=== PATIENT | female | born 1955 ===

== ENCOUNTER 2020-11-15 14:57 | Inpatient (IN) ==
[2020-11-15] MEDS ORDERED: ASPIRIN 325 MG TABLET PO STA (15:38)
[2020-11-15] MEDS ORDERED: ONDANSETRON 4 MG/2 ML VIAL IV STA (15:38)
[2020-11-15] MEDS ORDERED: MORPHINE 4 MG/1 ML VIAL IV STA (15:38)
[2020-11-15] MEDS ORDERED: METOPROLOL TARTRATE 5 MG/5 ML VIAL IV STA (15:42)
[2020-11-15 15:46] LABS: Basophils % 0.3 % (0.0-0.8); Eosinophils # 0.1 10*3/uL (0.0-0.87); Eosinophils % 0.8 % (0.00-10.9); Hematocrit 38.4 VOL% (35.7-47.0); Hemoglobin 12.8 GM/DL (12.0-16.0); Immature Granulocytes % 0.2 %; Immature Granulocytes Absolute 0.01 #; Lymphocytes # 2.2 10*3/uL (1.4-4.0); Lymphocytes % 36.5 % (21.3-54.2); Mean Corpuscular HGB Conc 33.3 GM/DL (32-36); Mean Corpuscular Volume 90.1 FL (87-102); Mean Platelet Volume 11.1 FL (9.6-12.0); Monocytes % 8.9 % (1.7-12.7); Neutrophils % 53.3 % (38.7-73.9); Platelet Count 196 T/CUMM (130-400); Red Blood Count 4.26 MC/CUMM (3.8-5.5); Red Cell Distribution Width 13.3 % (9.3-17.3); White Blood Count 6.1 T/CUMM (4-12)
[2020-11-15 15:55] LABS: INR 1.2; PT Patient Result 12.4 SECS (9.8-11.9)
[2020-11-15 15:57] LABS: Albumin 3.6 G/DL (3.4-5.0); Bilirubin,Total 0.7 MG/DL (0.2-1.0); Calcium 9.6 MG/DL (8.5-10.1); Potassium 3.4 MMOL/L (3.5-5.1); Total Protein 7.7 G/DL (6.4-8.2)
[2020-11-15] MEDS ORDERED: HEPARIN DRIP 25,000 UNITS/500 ML PREMIX IV SCH (16:00)
[2020-11-15] MEDS ORDERED: HEPARIN/NACL 0.9% 2 UNITS/ML 2,000 UNIT/1,000 ML BAG IV ONE (16:15)
[2020-11-15] MEDS ORDERED: LIDOCAINE 1% 20 ML VIAL ONE (16:15)
[2020-11-15] MEDS ORDERED: NITROGLYCERIN 2% OINT 1 INCH/GM PACK TOP STA (16:23)
[2020-11-15] MEDS ORDERED: NITROGLYCERIN DRIP 50 MG/250 ML BOTTLE IV ONE (16:27)
[2020-11-15] MEDS ORDERED: VERAPAMIL 5 MG/2 ML VIAL ONE (16:27)
[2020-11-15] MEDS ORDERED: MAGNESIUM SULF RIDER 2 GM in PREMIX 1 EACH IV PRN (16:32)
[2020-11-15] MEDS ORDERED: BISACODYL 5 MG TABLET PO PRN (16:32)
[2020-11-15] MEDS ORDERED: MAGNESIUM SULF RIDER 4 GM in PREMIX 1 EACH IV PRN (16:32)
[2020-11-15] MEDS ORDERED: ALUMINUM/MAGNES/SIMETH MAX STR 30 ML UDCUP PO PRN (16:32)
[2020-11-15] MEDS ORDERED: hydrALAZINE 20 MG/1 ML VIAL IV PRN (16:32)
[2020-11-15] MEDS ORDERED: ONDANSETRON 4 MG/2 ML VIAL IV PRN (16:32)
[2020-11-15] MEDS ORDERED: MORPHINE 4 MG/1 ML VIAL IV PRN (16:32)
[2020-11-15] MEDS ORDERED: ZALEPLON 5 MG CAPSULE PO PRN (16:32)
[2020-11-15] MEDS ORDERED: diphenhydrAMINE CAP 25 MG CAPSULE PO ONE (16:36)
[2020-11-15] MEDS ORDERED: DIAZEPAM 5 MG TABLET PO ONE (16:36)
[2020-11-15] MEDS ORDERED: HYDROmorphone 2 MG/1 ML VIAL ONE (16:46)
[2020-11-15] MEDS ORDERED: MIDAZOLAM 2 MG/2 ML VIAL ONE (16:46)
[2020-11-15] MEDS: SODIUM CHLORIDE 0.45% 1,000 ML IV SCH (17:51)
[2020-11-15 18:22] LABS: CKMB % 10.9 %
[2020-11-15 18:35] LABS: Troponin I 27.2 NG/ML (0.00-0.045)
[2020-11-15] MEDS ORDERED: METOPROLOL TARTRATE 25 MG TABLET PO SCH (21:00)
[2020-11-15] MEDS ORDERED: ROSUVASTATIN 20 MG TABLET PO SCH (21:00)
[2020-11-15] MEDS: METOPROLOL TARTRATE 25 MG TABLET PO SCH (21:09)
[2020-11-15 21:22] LABS: CKMB % 10.1 %
[2020-11-15 21:24] LABS: Troponin I 29.4 NG/ML (0.00-0.045)
[2020-11-15] MEDS ORDERED: HEPARIN 5,000 UNIT/1 ML VIAL IV ONE (21:26)
[2020-11-15 22:59] LABS: CKMB % 9.2 %
[2020-11-15 23:04] LABS: Troponin I 26.7 NG/ML (0.00-0.045)
[2020-11-15] MEDS: NITROGLYCERIN SL 0.4 MG TABLET SL PRN ×2 (23:12→23:18)
[2020-11-16] MEDS: SODIUM CHLORIDE 0.45% 1,000 ML IV SCH (02:15)
[2020-11-16 03:18] LABS: Basophils % 0.4 % (0.0-0.8); Eosinophils # 0.1 10*3/uL (0.0-0.87); Eosinophils % 1.3 % (0.00-10.9); Hematocrit 34.1 VOL% (35.7-47.0); Hemoglobin 11.5 GM/DL (12.0-16.0); Immature Granulocytes % 0.4 %; Immature Granulocytes Absolute 0.02 #; Lymphocytes % 35.4 % (21.3-54.2); Mean Corpuscular HGB Conc 33.7 GM/DL (32-36); Mean Corpuscular Volume 89.7 FL (87-102); Mean Platelet Volume 10.2 FL (9.6-12.0); Monocytes % 8.2 % (1.7-12.7); Neutrophils % 54.3 % (38.7-73.9); Platelet Count 161 T/CUMM (130-400); Red Cell Distribution Width 13.2 % (9.3-17.3); White Blood Count 5.6 T/CUMM (4-12)
[2020-11-16 03:31] LABS: Calcium 8.6 MG/DL (8.5-10.1); Osmolality,Calculated 275.8 MOS/KG (273-304); Potassium 3.3 MMOL/L (3.5-5.1)
[2020-11-16 03:51] LABS: Risk Ratio 3.18; VLDL CHOLESTEROL 13.6 MG/DL
[2020-11-16] MEDS: POTASSIUM CHLORIDE 20 MEQ TABLET PO PRN ×2 (05:35→08:19)
[2020-11-16] MEDS ORDERED: GLUCAGON 1 MG VIAL IM PRN (06:22)
[2020-11-16] MEDS ORDERED: DEXTROSE 50% 25 GM/50 ML VIAL IV PRN ×5 (06:22→15:50)
[2020-11-16] MEDS ORDERED: CEFUROXIME INJ 1,500 MG in SODIUM CHLORIDE 0.9% 100 ML IV ONE ×2 (06:22→10:00)
[2020-11-16] MEDS: CHLORHEXIDINE 4% SOLN 118 ML BOTTLE TOP SCH ×4 (06:30→16:23)
[2020-11-16] MEDS ORDERED: SODIUM CHLORIDE 0.9% 1,000 ML IV SCH (06:30)
[2020-11-16] MEDS ORDERED: POTASSIUM CHLORIDE RIDER 20 MEQ in PREMIX 1 EACH IV PRN ×2 (06:45→15:26)
[2020-11-16] MEDS ORDERED: POTASSIUM CHLORIDE RIDER 10 MEQ in PREMIX 1 EACH IV PRN ×2 (06:45→15:26)
[2020-11-16 06:50] LABS: ABG Oxygen Saturation 98.2 % (95-100); ABG PCO2 42.4 MM HG (35-48); ABG PH 7.437 (7.35-7.45); ABG PO2 99.3 MM HG (80-95); ABG TCO2 25.4 MMOL/L (23-27)
[2020-11-16] MEDS: METOPROLOL TARTRATE 25 MG TABLET PO SCH (08:19)
[2020-11-16] MEDS ORDERED: MAGNESIUM SULF INJ 3 GM in SODIUM CHLORIDE 0.9% 100 ML IV ONE (08:30)
[2020-11-16] MEDS ORDERED: CHLORHEXIDINE 0.12% ORAL RINSE 60 ML BOTTLE SWISH/SPIT SCH ×3 (09:00→21:00)
[2020-11-16] MEDS ORDERED: PANTOPRAZOLE 40 MG TABLET PO SCH (09:00)
[2020-11-16] MEDS ORDERED: LOSARTAN 25 MG TABLET PO SCH (09:00)
[2020-11-16] MEDS ORDERED: ASPIRIN EC 81 MG TABLET PO SCH (09:00)
[2020-11-16] MEDS ORDERED: DIAZEPAM 5 MG TABLET PO ONE (09:42)
[2020-11-16] MEDS ORDERED: PAPAVERINE 60 MG/2 ML VIAL ONE (10:33)
[2020-11-16] MEDS ORDERED: VANCOMYCIN 1,000 MG VIAL ONE (10:34)
[2020-11-16] MEDS ORDERED: VANCOMYCIN 500 MG VIAL ONE (10:34)
[2020-11-16] MEDS ORDERED: SODIUM CHLORIDE 0.9% 1,000 ML IV ONE (10:42)
[2020-11-16] MEDS ORDERED: LIDOCAINE 2% 5 ML VIAL ONE ×2 (10:42→14:47)
[2020-11-16] MEDS ORDERED: SODIUM CHLORIDE 0.9% 250 ML IV ONE (10:42)
[2020-11-16] MEDS ORDERED: AMINOCAPROIC ACID 5,000 MG/20 ML VIAL ONE (10:42)
[2020-11-16] MEDS ORDERED: VECURONIUM 10 MG VIAL IV ONE (10:42)
[2020-11-16] MEDS ORDERED: HEPARIN/NACL 0.9% 2 UNITS/ML 1,000 UNIT/500 ML BAG IV ONE (10:42)
[2020-11-16] MEDS ORDERED: LACTATED RINGERS 1,000 ML IV ONE (10:42)
[2020-11-16] MEDS ORDERED: SODIUM CHLORIDE 0.9% 100 ML IV ONE (10:42)
[2020-11-16] MEDS ORDERED: MIDAZOLAM 10 MG/2 ML VIAL ONE ×4 (10:43)
[2020-11-16] MEDS ORDERED: SUFentanil 250 MCG/5 ML AMP ONE ×2 (10:43→10:49)
[2020-11-16] MEDS ORDERED: MINERAL OIL/PETROLATUM OPH OINT 3.5 GM TUBE ONE (10:43)
[2020-11-16 12:28] LABS: ABG Base Excess 1.2 MMOL/L (-2.5-2.5); ABG HCO3 25.5 MMOL/L (20-26); ABG PCO2 36.2 MM HG (35-48); ABG PH 7.446 (7.35-7.45); ABG TCO2 22.5 MMOL/L (23-27); Glucose Heart Surgery 117 MG/DL (74-106); Hematocrit Heart Surgery 32.3 PERCENT (37-47); Hemoglobin Heart Surgery 10.5 G/DL (12.0-16.0); Ionized Calcium Arterial 1.17 MMOL/L (1.21-1.46); PCO2 Patient Temp Arterial 36.2 MMHG; PH Patient Temp Arterial 7.446; Patient Temperature 37 CELCIUS; Potassium Heart/CVR 3.6 MMOL/L (3.5-5.1); Sodium Heart/CVR 139 MMOL/L (135-145)
[2020-11-16 12:40] LABS: Bilirubin,Urine Negative (Negative); Blood, Urine Small mg/dL (Negative); Glucose,Urine (UA) Negative (Negative); Ketones,Urine Negative (Negative); Mucus,Urine Few /LPF (Occasional); Nitrite,Urine Negative (Negative); Protein,Urine Negative; Urine Appearance CLEAR (Clear); Urine Color Yellow (Yellow); Urine Urobilinogen < 2.0 EU/DL (0.2-1.0); WBC,Urine <1 /HPF (0-6)
[2020-11-16 13:44] LABS: Hematocrit Heart Surgery 22.5 PERCENT (37-47); Hemoglobin Heart Surgery 7.2 G/DL (12.0-16.0); PCO2 Patient Temp Venous 35.6 MM HG; PH Patient Temp Venous 7.469; Potassium Heart/CVR 4.5 MMOL/L (3.5-5.1); VBG Base Excess 2.3 MEQ/L (0-4); VBG HCO3 26.3 MEQ/L (24-28); VBG Oxygen Saturation 76.3 %; VBG PCO2 39.2 MMHG (41-51); VBG PH 7.44; VBG PO2 41.3 MMHG (17-40); VBG Total CO2 25.1 MMOL/L
[2020-11-16] MEDS ORDERED: PHENYLEPHRINE 10 MG/1 ML VIAL IV ONE (14:03)
[2020-11-16] MEDS ORDERED: CALCIUM CHLORIDE 1,000 MG/10 ML VIAL IV ONE (14:07)
[2020-11-16] MEDS ORDERED: SEVOFLURANE 1 UNIT/15 MINUTE INH ONE ×5 (14:08→15:27)
[2020-11-16] MEDS ORDERED: PHENYLEPHRINE DRIP 40 MG/250 ML PREMIX IV ONE (14:09)
[2020-11-16] MEDS ORDERED: ESMOLOL 100 MG/10 ML VIAL IV ONE (14:18)
[2020-11-16 14:19] LABS: Hemoglobin Heart Surgery 7.8 G/DL (12.0-16.0); PCO2 Patient Temp Venous 33.8 MM HG; PH Patient Temp Venous 7.5; PO2 Patient Temp Venous 36.7 MM HG; Potassium Heart/CVR 4.1 MMOL/L (3.5-5.1); VBG Base Excess 2.5 MEQ/L (0-4); VBG Oxygen Saturation 72.3 %; VBG PCO2 35.3 MMHG (41-51); VBG PH 7.485; VBG PO2 39.4 MMHG (17-40); VBG Total CO2 27.1 MMOL/L
[2020-11-16 14:46] LABS: ABG Base Excess 0.3 MMOL/L (-2.5-2.5); ABG HCO3 24.7 MMOL/L (20-26); ABG Oxygen Saturation 99.5 % (95-100); ABG PH 7.403 (7.35-7.45); ABG TCO2 23.2 MMOL/L (23-27); Glucose Heart Surgery 224 MG/DL (74-106); Hematocrit Heart Surgery 25.5 PERCENT (37-47); Hemoglobin Heart Surgery 8.2 G/DL (12.0-16.0); Ionized Calcium Arterial 1.24 MMOL/L (1.21-1.46); PH Patient Temp Arterial 7.403; Patient Temperature 37 CELCIUS; Potassium Heart/CVR 3.8 MMOL/L (3.5-5.1); Sodium Heart/CVR 131 MMOL/L (135-145)
[2020-11-16] MEDS ORDERED: DEXTROSE 5% KCL 20 MEQ 20 MEQ/1,000 ML BAG IV ONE (14:47)
[2020-11-16] MEDS ORDERED: MANNITOL 100 GM/500 ML BAG IV ONE (14:47)
[2020-11-16] MEDS ORDERED: PROTAMINE SULFATE 250 MG/25 ML VIAL IV ONE (14:47)
[2020-11-16] MEDS ORDERED: MAGNESIUM SULFATE 5 GM/10 ML VIAL IV ONE (14:47)
[2020-11-16] MEDS ORDERED: METOPROLOL TARTRATE 5 MG/5 ML VIAL IV ONE (14:47)
[2020-11-16] MEDS ORDERED: HEPARIN 10,000 UNIT/10 ML VIAL ONE (14:47)
[2020-11-16] MEDS ORDERED: ALBUMIN 25% 25 GM/100 ML VIAL IV ONE (14:47)
[2020-11-16] MEDS ORDERED: methylPREDNISolone SOD SUC 1,000 MG/8 ML VIAL ONE (14:47)
[2020-11-16] MEDS ORDERED: FUROSEMIDE 20 MG/2 ML VIAL ONE (14:48)
[2020-11-16] MEDS ORDERED: MAGNESIUM SULF RIDER 2 GM in PREMIX 1 EACH IV PRN ×2 (15:26→15:50)
[2020-11-16] MEDS ORDERED: PHENYLEPHRINE DRIP 40 MG/250 ML PREMIX IV PRN ×2 (15:26→15:50)
[2020-11-16] MEDS ORDERED: MAGNESIUM SULF RIDER 4 GM in PREMIX 1 EACH IV PRN ×2 (15:26→15:50)
[2020-11-16] MEDS ORDERED: CHLORHEXIDINE 4% SOLN 118 ML BOTTLE TOP PRN ×2 (15:26→15:50)
[2020-11-16] MEDS ORDERED: MORPHINE 4 MG/1 ML VIAL IV PRN (15:26)
[2020-11-16] MEDS ORDERED: MORPHINE 10 MG/1 ML VIAL IV PRN ×2 (15:26→15:50)
[2020-11-16] MEDS ORDERED: INSULIN REGULAR 100 UNIT/ML IV ONE ×2 (15:26→15:50)
[2020-11-16] MEDS ORDERED: CALCIUM CHLORIDE 1,000 MG/10 ML SYRINGE IV PRN ×2 (15:26→15:50)
[2020-11-16] MEDS ORDERED: NITROPRUSSIDE 100 MG in DEXTROSE 5% 250 ML IV PRN ×2 (15:26→15:50)
[2020-11-16] MEDS ORDERED: MIDAZOLAM 10 MG/2 ML VIAL IV PRN ×2 (15:26→15:50)
[2020-11-16] MEDS ORDERED: ACETAMINOPHEN 650 MG SUPP RECTAL PRN ×2 (15:26→15:50)
[2020-11-16] MEDS ORDERED: ALBUMIN 5% 12.5 GM/250 ML VIAL IV PRN ×2 (15:26→15:50)
[2020-11-16] MEDS ORDERED: VECURONIUM 10 MG VIAL IV PRN ×4 (15:26→15:50)
[2020-11-16] MEDS ORDERED: INSULIN REGULAR 100 UNIT/ML IV PRN ×2 (15:26→15:50)
[2020-11-16] MEDS ORDERED: ONDANSETRON 4 MG/2 ML VIAL IV PRN ×2 (15:26→15:50)
[2020-11-16] MEDS ORDERED: LACTATED RINGERS 1,000 ML IV PRN (15:26)
[2020-11-16] MEDS ORDERED: MIDAZOLAM 2 MG/2 ML VIAL IV PRN ×2 (15:26→15:50)
[2020-11-16] MEDS ORDERED: SODIUM CHLORIDE 0.45% 1,000 ML IV SCH ×5 (15:30→16:30)
[2020-11-16] MEDS ORDERED: INSULIN REGULAR DRIP 100 ML IV SCH ×2 (15:30→15:50)
[2020-11-16] MEDS ORDERED: HEPARIN/NACL 0.9% 2 UNITS/ML 1,000 UNIT/500 ML BAG IV SCH (15:30)
[2020-11-16] MEDS: LACTATED RINGERS 1,000 ML IV PRN ×4 (15:45→18:27)
[2020-11-16] MEDS ORDERED: LACTATED RINGERS 250 ML IV PRN (15:50)
[2020-11-16] MEDS ORDERED: PROTAMINE SULFATE 50 MG/5 ML VIAL IV ONE ×2 (15:57→16:07)
[2020-11-16] MEDS: POTASSIUM CHLORIDE RIDER 20 MEQ in PREMIX 1 EACH IV PRN ×4 (16:00→20:38)
[2020-11-16 16:02] LABS: ABG Base Excess 1.9 MMOL/L (-2.5-2.5); ABG HCO3 26.1 MMOL/L (20-26); ABG Oxygen Saturation 98.8 % (95-100); ABG PCO2 43.4 MM HG (35-48); ABG PH 7.402 (7.35-7.45); ABG TCO2 24.3 MMOL/L (23-27); Glucose Heart Surgery 207 MG/DL (74-106); Hemoglobin Heart Surgery 10.7 G/DL (12.0-16.0); Potassium Heart/CVR 3.4 MMOL/L (3.5-5.1)
[2020-11-16 16:11] LABS: Basophils % 0.2 % (0.0-0.8); Eosinophils % 0.8 % (0.00-10.9); Hematocrit 31.2 VOL% (35.7-47.0); Hemoglobin 10.4 GM/DL (12.0-16.0); Immature Granulocytes % 0.6 %; Immature Granulocytes Absolute 0.03 #; Lymphocytes # 0.9 10*3/uL (1.4-4.0); Lymphocytes % 18.1 % (21.3-54.2); Mean Corpuscular HGB Conc 33.3 GM/DL (32-36); Mean Corpuscular Volume 90.7 FL (87-102); Mean Platelet Volume 10.6 FL (9.6-12.0); Neutrophils % 74.3 % (38.7-73.9); Platelet Count 147 T/CUMM (130-400); Red Blood Count 3.44 MC/CUMM (3.8-5.5); Red Cell Distribution Width 13.2 % (9.3-17.3); White Blood Count 5.2 T/CUMM (4-12)
[2020-11-16] MEDS ORDERED: POTASSIUM CHLORIDE RIDER 100 ML IV ONE ×2 (16:12)
[2020-11-16] MEDS ORDERED: NITROPRUSSIDE 50 MG/2 ML VIAL ONE (16:13)
[2020-11-16 16:23] LABS: INR 1.1; PT Patient Result 12.4 SECS (9.8-11.9); Partial Thromboplastin Time 25.6 SECS (23.9-33.8)
[2020-11-16 16:28] LABS: CKMB % 4.9 %
[2020-11-16 16:32] LABS: Troponin I 24.6 NG/ML (0.00-0.045)
[2020-11-16 16:35] LABS: Albumin 3.1 G/DL (3.4-5.0); Calcium 8.7 MG/DL (8.5-10.1); Osmolality,Calculated 281.5 MOS/KG (273-304); Potassium 3.3 MMOL/L (3.5-5.1); Total Protein 6.1 G/DL (6.4-8.2)
[2020-11-16 17:39] LABS: ABG Base Excess 2.2 MMOL/L (-2.5-2.5); ABG HCO3 26.4 MMOL/L (20-26); ABG Oxygen Saturation 98.4 % (95-100); ABG PCO2 44.3 MM HG (35-48); ABG PH 7.399 (7.35-7.45); ABG TCO2 24.9 MMOL/L (23-27); Glucose Heart Surgery 154 MG/DL (74-106); Hematocrit Heart Surgery 30.9 PERCENT (37-47); Potassium Heart/CVR 3.5 MMOL/L (3.5-5.1)
[2020-11-16 19:35] LABS: ABG Base Excess 3.1 MMOL/L (-2.5-2.5); ABG HCO3 27.2 MMOL/L (20-26); ABG Oxygen Saturation 95.8 % (95-100); ABG PCO2 43.6 MM HG (35-48); ABG PH 7.416 (7.35-7.45); ABG PO2 81.1 MM HG (80-95); ABG TCO2 25.5 MMOL/L (23-27); Glucose Heart Surgery 144 MG/DL (74-106); Hematocrit Heart Surgery 30.6 PERCENT (37-47); Hemoglobin Heart Surgery 9.9 G/DL (12.0-16.0); Potassium Heart/CVR 3.9 MMOL/L (3.5-5.1)
[2020-11-16 20:31] LABS: ABG Base Excess 2.5 MMOL/L (-2.5-2.5); ABG HCO3 26.6 MMOL/L (20-26); ABG Oxygen Saturation 94.9 % (95-100); ABG PCO2 45.8 MM HG (35-48); ABG PH 7.392 (7.35-7.45); ABG PO2 77.9 MM HG (80-95); ABG TCO2 25.7 MMOL/L (23-27); Glucose Heart Surgery 154 MG/DL (74-106); Hematocrit Heart Surgery 28.3 PERCENT (37-47); Hemoglobin Heart Surgery 9.1 G/DL (12.0-16.0); Potassium Heart/CVR 3.5 MMOL/L (3.5-5.1)
[2020-11-16] MEDS: KETOROLAC 30 MG/1 ML VIAL IV SCH (20:43)
[2020-11-16] MEDS: POTASSIUM CHLORIDE RIDER 10 MEQ in PREMIX 1 EACH IV PRN (21:18)
[2020-11-16 22:08] LABS: ABG Base Excess 1.3 MMOL/L (-2.5-2.5); ABG HCO3 25.9 MMOL/L (20-26); ABG Oxygen Saturation 97.7 % (95-100); ABG PCO2 40.9 MM HG (35-48); ABG PH 7.419 (7.35-7.45); ABG PO2 122.1 MM HG (80-95); ABG TCO2 27.1 MMOL/L (23-27); Glucose Heart Surgery 123 MG/DL (74-106); Hemoglobin Heart Surgery 10.1 G/DL (12.0-16.0); Potassium Heart/CVR 3.8 MMOL/L (3.5-5.1)
[2020-11-16] MEDS: MORPHINE 4 MG/1 ML VIAL IV PRN (22:38)
[2020-11-16] MEDS: CEFUROXIME INJ 1,500 MG in SODIUM CHLORIDE 0.9% 100 ML IV SCH (23:22)
[2020-11-16] MEDS ORDERED: CEFUROXIME INJ 1,500 MG in SODIUM CHLORIDE 0.9% 100 ML IV SCH (23:37)
[2020-11-16 23:58] LABS: ABG Base Excess 1.6 MMOL/L (-2.5-2.5); ABG HCO3 25.8 MMOL/L (20-26); ABG Oxygen Saturation 98.2 % (95-100); ABG PCO2 43.8 MM HG (35-48); ABG PH 7.394 (7.35-7.45); ABG TCO2 24.3 MMOL/L (23-27); Glucose Heart Surgery 119 MG/DL (74-106); Hematocrit Heart Surgery 30.9 PERCENT (37-47); Potassium Heart/CVR 3.6 MMOL/L (3.5-5.1)
[2020-11-17] MEDS ORDERED: FUROSEMIDE 40 MG/4 ML VIAL IV ONE (00:02)
[2020-11-17] MEDS: POTASSIUM CHLORIDE RIDER 20 MEQ in PREMIX 1 EACH IV PRN ×2 (00:15→03:17)
[2020-11-17 00:20] LABS: CKMB % 6.9 %
[2020-11-17 00:27] LABS: Troponin I 24.5 NG/ML (0.00-0.045)
[2020-11-17] MEDS: POTASSIUM CHLORIDE RIDER 10 MEQ in PREMIX 1 EACH IV PRN (00:49)
[2020-11-17 01:03] LABS: ABG Base Excess 1.8 MMOL/L (-2.5-2.5); ABG HCO3 26.1 MMOL/L (20-26); ABG Oxygen Saturation 98.8 % (95-100); ABG PCO2 42.1 MM HG (35-48); ABG TCO2 24.1 MMOL/L (23-27); Glucose Heart Surgery 119 MG/DL (74-106); Hematocrit Heart Surgery 32.4 PERCENT (37-47); Hemoglobin Heart Surgery 10.5 G/DL (12.0-16.0); Potassium Heart/CVR 4.5 MMOL/L (3.5-5.1)
[2020-11-17 01:53] LABS: ABG Base Excess 2.6 MMOL/L (-2.5-2.5); ABG Oxygen Saturation 97.5 % (95-100); ABG PCO2 40.9 MM HG (35-48); ABG PH 7.437 (7.35-7.45); ABG PO2 109.4 MM HG (80-95); ABG TCO2 28.2 MMOL/L (23-27); Glucose Heart Surgery 105 MG/DL (74-106); Hemoglobin Heart Surgery 11.1 G/DL (12.0-16.0); Potassium Heart/CVR 3.8 MMOL/L (3.5-5.1)
[2020-11-17 02:57] LABS: ABG Base Excess 1.4 MMOL/L (-2.5-2.5); ABG HCO3 25.6 MMOL/L (20-26); ABG Oxygen Saturation 93.6 % (95-100); ABG PCO2 40.7 MM HG (35-48); ABG PH 7.413 (7.35-7.45); ABG PO2 69.6 MM HG (80-95); ABG TCO2 23.7 MMOL/L (23-27); Glucose Heart Surgery 138 MG/DL (74-106); Hematocrit Heart Surgery 30.4 PERCENT (37-47); Hemoglobin Heart Surgery 9.8 G/DL (12.0-16.0); Potassium Heart/CVR 3.6 MMOL/L (3.5-5.1)
[2020-11-17] MEDS: KETOROLAC 30 MG/1 ML VIAL IV SCH ×4 (02:58→21:03)
[2020-11-17 04:13] LABS: ABG Base Excess 1.6 MMOL/L (-2.5-2.5); ABG HCO3 25.7 MMOL/L (20-26); ABG Oxygen Saturation 96.9 % (95-100); ABG PCO2 38.2 MM HG (35-48); ABG PH 7.445 (7.35-7.45); ABG PO2 99.4 MM HG (80-95); ABG TCO2 26.8 MMOL/L (23-27); Glucose Heart Surgery 116 MG/DL (74-106)
[2020-11-17 04:14] LABS: Hematocrit 27.9 VOL% (35.7-47.0); Hemoglobin 9.3 GM/DL (12.0-16.0); Immature Granulocytes % 0.3 %; Immature Granulocytes Absolute 0.02 #; Lymphocytes # 0.4 10*3/uL (1.4-4.0); Lymphocytes % 6.1 % (21.3-54.2); Mean Corpuscular HGB Conc 33.3 GM/DL (32-36); Mean Corpuscular Volume 90.6 FL (87-102); Mean Platelet Volume 10.6 FL (9.6-12.0); Monocytes % 6.1 % (1.7-12.7); Neutrophils % 87.5 % (38.7-73.9); Platelet Count 130 T/CUMM (130-400); Red Blood Count 3.08 MC/CUMM (3.8-5.5); Red Cell Distribution Width 13.2 % (9.3-17.3); White Blood Count 6.9 T/CUMM (4-12)
[2020-11-17 04:32] LABS: Hypochromasia 1+; Microcytosis 1+; Platelet Estimate Normal
[2020-11-17 04:39] LABS: Osmolality,Calculated 284.1 MOS/KG (273-304); Potassium 4.2 MMOL/L (3.5-5.1)
[2020-11-17 04:42] LABS: Albumin 3.1 G/DL (3.4-5.0); Bilirubin,Direct 0.12 MG/DL (0.0-0.20); Bilirubin,Total 0.7 MG/DL (0.2-1.0); Calcium 8.2 MG/DL (8.5-10.1); Osmolality,Calculated 282.3 MOS/KG (273-304); Potassium 4.1 MMOL/L (3.5-5.1); Total Protein 6.1 G/DL (6.4-8.2)
[2020-11-17] MEDS: METOPROLOL TARTRATE 25 MG TABLET PO SCH ×3 (05:11→21:03)
[2020-11-17] MEDS: MORPHINE 4 MG/1 ML VIAL IV PRN (05:53)
[2020-11-17 06:11] LABS: ABG Oxygen Saturation 96.7 % (95-100); ABG TCO2 23.1 MMOL/L (23-27)
[2020-11-17 06:12] LABS: ABG Base Excess 0.4 MMOL/L (-2.5-2.5); ABG HCO3 24.7 MMOL/L (20-26)
[2020-11-17 06:14] LABS: Glucose Heart Surgery 144 MG/DL (74-106); Hematocrit Heart Surgery 31.4 PERCENT (37-47); Hemoglobin Heart Surgery 10.2 G/DL (12.0-16.0); Potassium Heart/CVR 3.9 MMOL/L (3.5-5.1)
[2020-11-17] MEDS ORDERED: ALUMINUM/MAGNES/SIMETH MAX STR 30 ML UDCUP PO PRN (08:08)
[2020-11-17] MEDS ORDERED: ACETAMINOPHEN 325 MG TABLET PO PRN (08:08)
[2020-11-17] MEDS ORDERED: ZALEPLON 5 MG CAPSULE PO PRN (08:08)
[2020-11-17] MEDS ORDERED: ONDANSETRON 4 MG/2 ML VIAL IV PRN (08:08)
[2020-11-17] MEDS ORDERED: MAGNESIUM SULF RIDER 4 GM in PREMIX 1 EACH IV PRN (08:08)
[2020-11-17] MEDS ORDERED: MAGNESIUM HYDROXIDE SUSP 30 ML UDCUP PO PRN (08:08)
[2020-11-17] MEDS ORDERED: GLUCAGON 1 MG VIAL IM PRN (08:08)
[2020-11-17] MEDS ORDERED: MAGNESIUM SULF RIDER 2 GM in PREMIX 1 EACH IV PRN (08:08)
[2020-11-17] MEDS ORDERED: DEXTROSE 50% 25 GM/50 ML VIAL IV PRN (08:08)
[2020-11-17 08:15] LABS: CKMB % 8.8 %
[2020-11-17 08:21] LABS: Troponin I 26.2 NG/ML (0.00-0.045)
[2020-11-17] MEDS: CHLORHEXIDINE 0.12% ORAL RINSE 60 ML BOTTLE SWISH/SPIT SCH ×2 (08:30→21:03)
[2020-11-17] MEDS: hydroCHLOROthiazide 25 MG TABLET PO SCH (08:49)
[2020-11-17] MEDS: amLODIPine 5 MG TABLET PO SCH (08:49)
[2020-11-17] MEDS: ASPIRIN EC 325 MG TABLET PO SCH (08:49)
[2020-11-17] MEDS: FERROUS SULFATE 325 MG TABLET PO SCH (08:49)
[2020-11-17] MEDS: DOCUSATE SODIUM 100 MG CAPSULE PO SCH (08:50)
[2020-11-17] MEDS: SODIUM CHLOR 0.45% KCL 20 MEQ 20 MEQ/1,000 ML BAG IV SCH (08:50)
[2020-11-17] MEDS: PANTOPRAZOLE 40 MG TABLET PO SCH (08:50)
[2020-11-17] MEDS: lisinopriL 20 MG TABLET PO SCH (08:50)
[2020-11-17] MEDS: CEFUROXIME INJ 1,500 MG in SODIUM CHLORIDE 0.9% 100 ML IV SCH ×2 (11:56→23:49)
[2020-11-17 12:26] LABS: CKMB % 8.9 %
[2020-11-17 12:33] LABS: Troponin I 31.7 NG/ML (0.00-0.045)
[2020-11-17 17:49] LABS: CKMB % 6.9 %
[2020-11-17 17:50] LABS: Troponin I 30.5 NG/ML (0.00-0.045)
[2020-11-18] MEDS: KETOROLAC 30 MG/1 ML VIAL IV SCH ×4 (03:00→21:09)
[2020-11-18 05:01] LABS: Hematocrit 28.2 VOL% (35.7-47.0); Hemoglobin 9.2 GM/DL (12.0-16.0); Immature Granulocytes % 0.7 %; Immature Granulocytes Absolute 0.06 #; Lymphocytes # 1.5 10*3/uL (1.4-4.0); Mean Corpuscular HGB Conc 32.6 GM/DL (32-36); Mean Platelet Volume 11.1 FL (9.6-12.0); Monocytes % 11.1 % (1.7-12.7); Neutrophils % 72.2 % (38.7-73.9); Platelet Count 120 T/CUMM (130-400); Red Cell Distribution Width 13.8 % (9.3-17.3); White Blood Count 9.2 T/CUMM (4-12)
[2020-11-18 05:17] LABS: Hypochromasia 1+; Microcytosis 1+
[2020-11-18 05:28] LABS: Albumin 2.7 G/DL (3.4-5.0); Bilirubin,Direct 0.14 MG/DL (0.0-0.20); Bilirubin,Total 0.5 MG/DL (0.2-1.0); Calcium 8.1 MG/DL (8.5-10.1); Osmolality,Calculated 280.8 MOS/KG (273-304); Potassium 4.5 MMOL/L (3.5-5.1); Total Protein 6.1 G/DL (6.4-8.2)
[2020-11-18 05:32] LABS: Albumin 2.7 G/DL (3.4-5.0); Bilirubin,Direct 0.17 MG/DL (0.0-0.20); Bilirubin,Indirect 1.4 MG/DL (0.0-1.0); Bilirubin,Total 1.6 MG/DL (0.2-1.0); CKMB % 3.3 %; Total Protein 5.4 G/DL (6.4-8.2)
[2020-11-18 05:34] LABS: Troponin I 24.2 NG/ML (0.00-0.045)
[2020-11-18] MEDS ORDERED: FUROSEMIDE 40 MG/4 ML VIAL IV ONE (06:00)
[2020-11-18] MEDS: DOCUSATE SODIUM 100 MG CAPSULE PO SCH (08:36)
[2020-11-18] MEDS: hydroCHLOROthiazide 25 MG TABLET PO SCH (08:36)
[2020-11-18] MEDS: amLODIPine 5 MG TABLET PO SCH (08:37)
[2020-11-18] MEDS: PANTOPRAZOLE 40 MG TABLET PO SCH (08:37)
[2020-11-18] MEDS: lisinopriL 20 MG TABLET PO SCH (08:37)
[2020-11-18] MEDS: ASPIRIN EC 325 MG TABLET PO SCH (08:37)
[2020-11-18] MEDS: METOPROLOL TARTRATE 25 MG TABLET PO SCH (08:37)
[2020-11-18] MEDS: FERROUS SULFATE 325 MG TABLET PO SCH (08:37)
[2020-11-18] MEDS ORDERED: KETOROLAC 30 MG/1 ML VIAL IV PRN (09:38)
[2020-11-18] MEDS: CHLORHEXIDINE 0.12% ORAL RINSE 60 ML BOTTLE SWISH/SPIT SCH ×2 (10:11→22:13)
[2020-11-18] MEDS: SODIUM CHLOR 0.45% KCL 20 MEQ 20 MEQ/1,000 ML BAG IV SCH (10:20)
[2020-11-18] MEDS: carvediloL 6.25 MG TABLET PO SCH (21:09)
[2020-11-18] MEDS: oxyCODONE/ACETAMINOPHEN 5-325 MG TABLET PO PRN (21:11)
[2020-11-19] MEDS: KETOROLAC 30 MG/1 ML VIAL IV SCH ×3 (03:47→15:13)
[2020-11-19 05:33] LABS: Basophils % 0.3 % (0.0-0.8); Eosinophils % 0.4 % (0.00-10.9); Hematocrit 28.2 VOL% (35.7-47.0); Hemoglobin 9.2 GM/DL (12.0-16.0); Immature Granulocytes % 0.4 %; Immature Granulocytes Absolute 0.03 #; Lymphocytes # 1.6 10*3/uL (1.4-4.0); Lymphocytes % 22.3 % (21.3-54.2); Mean Corpuscular HGB Conc 32.6 GM/DL (32-36); Mean Corpuscular Volume 95.3 FL (87-102); Neutrophils % 64.6 % (38.7-73.9); Platelet Count 131 T/CUMM (130-400); Red Blood Count 2.96 MC/CUMM (3.8-5.5); Red Cell Distribution Width 13.3 % (9.3-17.3); White Blood Count 7.1 T/CUMM (4-12)
[2020-11-19 06:00] LABS: Alanine Aminotransferase 45 U/L (13-56); Albumin 2.6 G/DL (3.4-5.0); Albumin 2.7 G/DL (3.4-5.0); Alkaline Phosphatase 44 U/L (45-117); Aspartate Amino Transferase 41 U/L (0-37); Bilirubin,Direct 0.12 MG/DL (0.0-0.20); Bilirubin,Indirect 0.4 MG/DL (0.0-1.0); Bilirubin,Total 0.5 MG/DL (0.2-1.0); Calcium 8.1 MG/DL (8.5-10.1); Osmolality,Calculated 283.5 MOS/KG (273-304); Potassium 4.1 MMOL/L (3.5-5.1); Total Protein 5.5 G/DL (6.4-8.2)
[2020-11-19 07:58] LABS: Atypical Lymphocytes Few
[2020-11-19 07:59] LABS: Anisocytosis 1+; Platelet Estimate Adequate
[2020-11-19] MEDS: oxyCODONE/ACETAMINOPHEN 5-325 MG TABLET PO PRN ×2 (08:55→16:59)
[2020-11-19] MEDS: ASPIRIN EC 325 MG TABLET PO SCH (08:57)
[2020-11-19] MEDS: amLODIPine 5 MG TABLET PO SCH (08:57)
[2020-11-19] MEDS: PANTOPRAZOLE 40 MG TABLET PO SCH (08:57)
[2020-11-19] MEDS: FERROUS SULFATE 325 MG TABLET PO SCH (08:57)
[2020-11-19] MEDS: DOCUSATE SODIUM 100 MG CAPSULE PO SCH (08:57)
[2020-11-19] MEDS: carvediloL 6.25 MG TABLET PO SCH (08:57)
[2020-11-19] MEDS: lisinopriL 20 MG TABLET PO SCH (08:57)
[2020-11-19] MEDS: SODIUM CHLORIDE 0.9% 1,000 ML IV SCH ×2 (09:20→09:27)
[2020-11-19] MEDS: CHLORHEXIDINE 0.12% ORAL RINSE 60 ML BOTTLE SWISH/SPIT SCH (09:20)
[2020-11-19 10:10] LABS: Basophils % 0.1 % (0.0-0.8); Eosinophils % 0.6 % (0.00-10.9); Hematocrit 30.5 VOL% (35.7-47.0); Immature Granulocytes % 0.4 %; Immature Granulocytes Absolute 0.03 #; Lymphocytes # 1.4 10*3/uL (1.4-4.0); Lymphocytes % 19.5 % (21.3-54.2); Mean Corpuscular HGB Conc 32.8 GM/DL (32-36); Mean Corpuscular Volume 92.4 FL (87-102); Mean Platelet Volume 11.1 FL (9.6-12.0); Monocytes % 11.2 % (1.7-12.7); Neutrophils % 68.2 % (38.7-73.9); Platelet Count 136 T/CUMM (130-400); Red Cell Distribution Width 13.3 % (9.3-17.3); White Blood Count 7.1 T/CUMM (4-12)
[2020-11-19 10:18] LABS: INR 1.1; PT Patient Result 12.2 SECS (9.8-11.9); Partial Thromboplastin Time 25.6 SECS (23.9-33.8)
[2020-11-19 10:35] LABS: Albumin 2.6 G/DL (3.4-5.0); Bilirubin,Total 0.4 MG/DL (0.2-1.0); Calcium 8.3 MG/DL (8.5-10.1); Osmolality,Calculated 283.5 MOS/KG (273-304); Potassium 4.2 MMOL/L (3.5-5.1); Total Protein 6.1 G/DL (6.4-8.2)
[2020-11-19] MEDS ORDERED: ALBUTEROL/IPRATROPIUM 3 ML NEB RESP TX PRN (20:45)
[2020-11-19] MEDS: ENOXAPARIN 40 MG/0.4 ML SYRINGE SUBCUT SCH (23:35)
[2020-11-19] MEDS ORDERED: NALOXONE 0.4 MG/ML VIAL IV ONE (23:47)
[2020-11-19] MEDS ORDERED: NALOXONE 0.4 MG/ML VIAL ONE (23:55)
[2020-11-20] MEDS: KETOROLAC 30 MG/1 ML VIAL IV SCH ×5 (00:03→22:52)
[2020-11-20] MEDS: CHLORHEXIDINE 0.12% ORAL RINSE 60 ML BOTTLE SWISH/SPIT SCH ×3 (00:03→22:52)
[2020-11-20] MEDS: carvediloL 6.25 MG TABLET PO SCH ×3 (00:04→22:46)
[2020-11-20 01:10] LABS: Basophils % 0.2 % (0.0-0.8); Eosinophils # 0.1 10*3/uL (0.0-0.87); Eosinophils % 1.1 % (0.00-10.9); Hematocrit 30.7 VOL% (35.7-47.0); Hemoglobin 9.8 GM/DL (12.0-16.0); Immature Granulocytes % 0.5 %; Immature Granulocytes Absolute 0.03 #; Lymphocytes # 1.7 10*3/uL (1.4-4.0); Lymphocytes % 25.5 % (21.3-54.2); Mean Corpuscular HGB Conc 31.9 GM/DL (32-36); Mean Corpuscular Volume 93.6 FL (87-102); Monocytes % 10.8 % (1.7-12.7); Neutrophils % 61.9 % (38.7-73.9); Platelet Count 149 T/CUMM (130-400); Red Blood Count 3.28 MC/CUMM (3.8-5.5); Red Cell Distribution Width 13.1 % (9.3-17.3); White Blood Count 6.7 T/CUMM (4-12)
[2020-11-20 01:18] LABS: Albumin 2.8 G/DL (3.4-5.0); Bilirubin,Total 0.4 MG/DL (0.2-1.0); Calcium 8.4 MG/DL (8.5-10.1); Osmolality,Calculated 283.5 MOS/KG (273-304); Potassium 4.1 MMOL/L (3.5-5.1); Total Protein 6.2 G/DL (6.4-8.2)
[2020-11-20] MEDS: methylPREDNISolone SOD SUC 125 MG/2 ML VIAL IV SCH ×4 (02:14→18:13)
[2020-11-20] MEDS: DOCUSATE SODIUM 100 MG CAPSULE PO SCH (08:17)
[2020-11-20] MEDS: lisinopriL 20 MG TABLET PO SCH (08:17)
[2020-11-20] MEDS: PANTOPRAZOLE 40 MG TABLET PO SCH (08:17)
[2020-11-20] MEDS: amLODIPine 5 MG TABLET PO SCH (08:17)
[2020-11-20] MEDS: FERROUS SULFATE 325 MG TABLET PO SCH (08:17)
[2020-11-20] MEDS: ASPIRIN EC 325 MG TABLET PO SCH (08:17)
[2020-11-20] MEDS: SODIUM CHLORIDE 0.9% 1,000 ML IV SCH (08:18)
[2020-11-20] MEDS: ENOXAPARIN 40 MG/0.4 ML SYRINGE SUBCUT SCH (22:55)
[2020-11-21] MEDS: methylPREDNISolone SOD SUC 125 MG/2 ML VIAL IV SCH ×4 (01:02→18:22)
[2020-11-21] MEDS: KETOROLAC 30 MG/1 ML VIAL IV SCH ×3 (02:38→14:10)
[2020-11-21 07:09] LABS: Basophils % 0.1 % (0.0-0.8); Hematocrit 29.3 VOL% (35.7-47.0); Hemoglobin 10.1 GM/DL (12.0-16.0); Immature Granulocytes % 0.8 %; Immature Granulocytes Absolute 0.07 #; Lymphocytes # 1.2 10*3/uL (1.4-4.0); Lymphocytes % 14.3 % (21.3-54.2); Mean Corpuscular HGB Conc 34.5 GM/DL (32-36); Mean Corpuscular Volume 89.6 FL (87-102); Mean Platelet Volume 10.6 FL (9.6-12.0); Neutrophils % 78.8 % (38.7-73.9); Platelet Count 184 T/CUMM (130-400); Red Blood Count 3.27 MC/CUMM (3.8-5.5); Red Cell Distribution Width 12.3 % (9.3-17.3); White Blood Count 8.6 T/CUMM (4-12)
[2020-11-21 07:41] LABS: Alanine Aminotransferase 39 U/L (13-56); Albumin 2.9 G/DL (3.4-5.0); Alkaline Phosphatase 47 U/L (45-117); Aspartate Amino Transferase 27 U/L (0-37); Bilirubin,Direct < 0.100 MG/DL (0.0-0.20); Blood Urea Nitrogen 25 MG/DL (7-18); Calcium 8.6 MG/DL (8.5-10.1); Carbon Dioxide 29 MMOL/L (21-32); Estimated Glom Filtration Rate 121 ML/MIN; Glucose 172 MG/DL (74-106); Osmolality,Calculated 282.7 MOS/KG (273-304); Potassium 3.7 MMOL/L (3.5-5.1); Sodium 138 MMOL/L (136-145); Total Protein 6.6 G/DL (6.4-8.2)
[2020-11-21 07:42] LABS: Bilirubin,Indirect 0.5 MG/DL (0.0-1.0)
[2020-11-21] MEDS: PANTOPRAZOLE 40 MG TABLET PO SCH (09:06)
[2020-11-21] MEDS: POTASSIUM CHLORIDE 20 MEQ TABLET PO PRN ×2 (09:06→10:55)
[2020-11-21] MEDS: amLODIPine 5 MG TABLET PO SCH (09:06)
[2020-11-21] MEDS: FERROUS SULFATE 325 MG TABLET PO SCH (09:06)
[2020-11-21] MEDS: ASPIRIN EC 325 MG TABLET PO SCH (09:06)
[2020-11-21] MEDS: lisinopriL 20 MG TABLET PO SCH (09:06)
[2020-11-21] MEDS: carvediloL 6.25 MG TABLET PO SCH (09:07)
[2020-11-21] MEDS: CHLORHEXIDINE 0.12% ORAL RINSE 60 ML BOTTLE SWISH/SPIT SCH ×2 (09:08→21:00)
[2020-11-21] MEDS: DOCUSATE SODIUM 100 MG CAPSULE PO SCH (09:08)
[2020-11-21] MEDS: SODIUM CHLORIDE 0.9% 1,000 ML IV SCH (09:20)
[2020-11-21] MEDS ORDERED: hydroCHLOROthiazide 25 MG TABLET PO SCH (09:48)
[2020-11-21] MEDS ORDERED: CLOPIDOGREL 75 MG TABLET PO ONE (14:23)
[2020-11-21] MEDS: carvediloL 12.5 MG TABLET PO SCH (21:00)
[2020-11-21] MEDS: ROSUVASTATIN 20 MG TABLET PO SCH (21:00)
[2020-11-21] MEDS: ENOXAPARIN 40 MG/0.4 ML SYRINGE SUBCUT SCH (22:53)
[2020-11-22] MEDS: methylPREDNISolone SOD SUC 125 MG/2 ML VIAL IV SCH ×2 (01:58→06:21)
[2020-11-22 07:07] LABS: Basophils % 0.1 % (0.0-0.8); Hematocrit 34.2 VOL% (35.7-47.0); Hemoglobin 11.3 GM/DL (12.0-16.0); Immature Granulocytes % 1.4 %; Immature Granulocytes Absolute 0.15 #; Lymphocytes % 18.4 % (21.3-54.2); Mean Platelet Volume 10.6 FL (9.6-12.0); Monocytes % 10.8 % (1.7-12.7); Neutrophils % 69.3 % (38.7-73.9); Platelet Count 249 T/CUMM (130-400); Red Blood Count 3.76 MC/CUMM (3.8-5.5); Red Cell Distribution Width 12.4 % (9.3-17.3); White Blood Count 10.6 T/CUMM (4-12)
[2020-11-22 07:43] LABS: Alanine Aminotransferase 43 U/L (13-56); Albumin 2.8 G/DL (3.4-5.0); Alkaline Phosphatase 52 U/L (45-117); Aspartate Amino Transferase 25 U/L (0-37); Bilirubin,Indirect 0.3 MG/DL (0.0-1.0); Blood Urea Nitrogen 19 MG/DL (7-18); Calcium 8.3 MG/DL (8.5-10.1); Carbon Dioxide 27 MMOL/L (21-32); Estimated Glom Filtration Rate 118 ML/MIN; Glucose 122 MG/DL (74-106); Osmolality,Calculated 277.7 MOS/KG (273-304); Potassium 3.6 MMOL/L (3.5-5.1); Sodium 138 MMOL/L (136-145); Total Protein 6.6 G/DL (6.4-8.2)
[2020-11-22] MEDS ORDERED: POTASSIUM CHLORIDE 20 MEQ PACK PO ONE (07:59)
[2020-11-22] MEDS: amLODIPine 5 MG TABLET PO SCH (09:21)
[2020-11-22] MEDS: CLOPIDOGREL 75 MG TABLET PO SCH (09:21)
[2020-11-22] MEDS: FERROUS SULFATE 325 MG TABLET PO SCH (09:21)
[2020-11-22] MEDS: SPIRONOLACTONE 25 MG TABLET PO SCH (09:21)
[2020-11-22] MEDS: ASCORBIC ACID 500 MG TABLET PO SCH ×2 (09:21→21:03)
[2020-11-22] MEDS: ASPIRIN EC 81 MG TABLET PO SCH (09:21)
[2020-11-22] MEDS: DOCUSATE SODIUM 100 MG CAPSULE PO SCH (09:21)
[2020-11-22] MEDS: PANTOPRAZOLE 40 MG TABLET PO SCH (09:21)
[2020-11-22] MEDS: lisinopriL 20 MG TABLET PO SCH (09:22)
[2020-11-22] MEDS: carvediloL 12.5 MG TABLET PO SCH (09:22)
[2020-11-22] MEDS: CHLORHEXIDINE 0.12% ORAL RINSE 60 ML BOTTLE SWISH/SPIT SCH ×2 (09:26→21:03)
[2020-11-22] MEDS: SODIUM CHLORIDE 0.9% 1,000 ML IV SCH (11:03)
[2020-11-22] MEDS: carvediloL 25 MG TABLET PO SCH (21:03)
[2020-11-22] MEDS: ROSUVASTATIN 20 MG TABLET PO SCH (21:03)
[2020-11-22] MEDS: ENOXAPARIN 40 MG/0.4 ML SYRINGE SUBCUT SCH (21:03)
[2020-11-22] MEDS: predniSONE 10 MG TABLET PO SCH (21:03)
[2020-11-23 06:25] LABS: Basophils % 0.1 % (0.0-0.8); Eosinophils % 0.1 % (0.00-10.9); Hematocrit 34.5 VOL% (35.7-47.0); Hemoglobin 11.7 GM/DL (12.0-16.0); Immature Granulocytes % 1.7 %; Immature Granulocytes Absolute 0.15 #; Lymphocytes # 2.3 10*3/uL (1.4-4.0); Lymphocytes % 26.3 % (21.3-54.2); Mean Corpuscular HGB Conc 33.9 GM/DL (32-36); Mean Corpuscular Volume 89.4 FL (87-102); Mean Platelet Volume 10.4 FL (9.6-12.0); Monocytes % 11.7 % (1.7-12.7); Neutrophils % 60.1 % (38.7-73.9); Platelet Count 231 T/CUMM (130-400); Red Blood Count 3.86 MC/CUMM (3.8-5.5); Red Cell Distribution Width 12.6 % (9.3-17.3); White Blood Count 8.8 T/CUMM (4-12)
[2020-11-23 06:52] LABS: Calcium 8.1 MG/DL (8.5-10.1); Osmolality,Calculated 279.5 MOS/KG (273-304); Potassium 3.8 MMOL/L (3.5-5.1)
[2020-11-23] MEDS: lisinopriL 20 MG TABLET PO SCH (08:58)
[2020-11-23] MEDS: PANTOPRAZOLE 40 MG TABLET PO SCH (08:58)
[2020-11-23] MEDS: CLOPIDOGREL 75 MG TABLET PO SCH (08:58)
[2020-11-23] MEDS: ASPIRIN EC 81 MG TABLET PO SCH (08:58)
[2020-11-23] MEDS: predniSONE 10 MG TABLET PO SCH ×2 (08:58→23:20)
[2020-11-23] MEDS: FERROUS SULFATE 325 MG TABLET PO SCH (08:59)
[2020-11-23] MEDS: SPIRONOLACTONE 25 MG TABLET PO SCH (08:59)
[2020-11-23] MEDS: amLODIPine 5 MG TABLET PO SCH (08:59)
[2020-11-23] MEDS: carvediloL 25 MG TABLET PO SCH ×2 (08:59→23:19)
[2020-11-23] MEDS: ASCORBIC ACID 500 MG TABLET PO SCH ×2 (08:59→23:19)
[2020-11-23] MEDS: DOCUSATE SODIUM 100 MG CAPSULE PO SCH (08:59)
[2020-11-23] MEDS ORDERED: POLYETHYLENE GLYCOL POWDER 17 GM PACK PO SCH (09:00)
[2020-11-23] MEDS: CHLORHEXIDINE 0.12% ORAL RINSE 60 ML BOTTLE SWISH/SPIT SCH ×2 (09:00→23:22)
[2020-11-23] MEDS: SODIUM CHLORIDE 0.9% 1,000 ML IV SCH (09:33)
[2020-11-23] MEDS ORDERED: DOCUSATE SODIUM 100 MG CAPSULE PO PRN (12:48)
[2020-11-23] MEDS: ROSUVASTATIN 20 MG TABLET PO SCH (23:20)
[2020-11-23] MEDS: ENOXAPARIN 40 MG/0.4 ML SYRINGE SUBCUT SCH (23:22)
[2020-11-24 06:18] LABS: Basophils % 0.1 % (0.0-0.8); Eosinophils % 0.3 % (0.00-10.9); Hematocrit 34.7 VOL% (35.7-47.0); Hemoglobin 11.7 GM/DL (12.0-16.0); Immature Granulocytes % 2.1 %; Immature Granulocytes Absolute 0.22 #; Lymphocytes # 2.3 10*3/uL (1.4-4.0); Lymphocytes % 22.1 % (21.3-54.2); Mean Corpuscular HGB Conc 33.7 GM/DL (32-36); Mean Corpuscular Volume 90.4 FL (87-102); Mean Platelet Volume 10.1 FL (9.6-12.0); Monocytes % 9.1 % (1.7-12.7); Neutrophils % 66.3 % (38.7-73.9); Platelet Count 244 T/CUMM (130-400); Red Blood Count 3.84 MC/CUMM (3.8-5.5); Red Cell Distribution Width 12.6 % (9.3-17.3); White Blood Count 10.3 T/CUMM (4-12)
[2020-11-24 06:33] LABS: Calcium 8.5 MG/DL (8.5-10.1); Osmolality,Calculated 280.5 MOS/KG (273-304); Potassium 4.1 MMOL/L (3.5-5.1)
[2020-11-24 08:13] VITALS: BP 136/79
[2020-11-24] MEDS: lisinopriL 20 MG TABLET PO SCH (08:40)
[2020-11-24] MEDS: carvediloL 25 MG TABLET PO SCH (08:40)
[2020-11-24] MEDS: ASPIRIN EC 81 MG TABLET PO SCH (08:41)
[2020-11-24] MEDS: CLOPIDOGREL 75 MG TABLET PO SCH (08:41)
[2020-11-24] MEDS: SPIRONOLACTONE 25 MG TABLET PO SCH (08:41)
[2020-11-24] MEDS: PANTOPRAZOLE 40 MG TABLET PO SCH (08:41)
[2020-11-24] MEDS: FERROUS SULFATE 325 MG TABLET PO SCH (08:41)
[2020-11-24] MEDS: ASCORBIC ACID 500 MG TABLET PO SCH (08:41)
[2020-11-24] MEDS: amLODIPine 5 MG TABLET PO SCH (08:41)
[2020-11-24] MEDS: CHLORHEXIDINE 0.12% ORAL RINSE 60 ML BOTTLE SWISH/SPIT SCH (08:42)
[2020-11-24] MEDS ORDERED: predniSONE 10 MG TABLET PO SCH (09:00)
== END 2020-11-24 13:45 | disposition home health service (06) | DRG 233 ==
LOC: N.ED 14:57 → N.CC 14:57 → N.CVR 11-16 14:57 → N.ICU 11-17 07:50 → N.TELES 11-17 15:30
PROVIDERS: ADMIT Internal Medicine Cardiovascular Disease; ATTEND Internal Medicine Cardiovascular Disease
PROC: CLCCHCL (ICD-10-PCS; 2020-11-15 16:45)